=== PATIENT | female | born 1995 | race Caucasian/White ===

== ENCOUNTER 2016-05-23 18:06 | Outpatient (CLI) | payer OTHER ==
[~2016-05-23 18:06] MED LIST: Augmentin PO; CYMBALTA20 MG PO; DEPAKOTE500 MG PO; GEODON80 MG PO; NO HOME MEDS; PERCOCET 5/31 TABLET PO; Roxicet,Percocet 5/3 PO; SEASONIQUE 01 TABLET PO; VYVANSE70 MG PO
== END 2016-05-23 19:36 | disposition home or self-care (01) ==
LOC: LDRP-OP 18:06 → 2WEST 18:07 → LDRP-OP 06-09 14:35
DX: O48.0 Post-term pregnancy (principal); Z3A.41 41 weeks gestation of pregnancy
CPT/HCPCS: G0378

== ENCOUNTER 2016-05-24 07:58 | Inpatient (IN) | payer OTHER ==
[2016-05-23 19:30] VITALS: BP 109/55
[~2016-05-24] VITALS: Ht 154.9 cm; Wt 80.3 kg
[2016-05-24] VITALS (24 sets, daily range): BP systolic 84–146; BP diastolic 50–80
[2016-05-24 09:01] LABS: HEMATOCRIT 35.7 % (36.0-46.0); MCH 29.7 PG (29.0-34.0); MCHC 33.3 G/DL (30.0-36.0); MEAN PLAT.VOLUME 11.2 uM^3 (9.5-12.4); PLATELET COUNT 281 K/uL (156-360); RBC DIS.WIDTH-CV 13.6 % (11.8-14.6); RBC DIS.WIDTH-SD 44.2 % (39-53); RED BLOOD COUNT 4.01 M/uL (3.80-5.20); WHITE BLOOD COUNT 11.7 K/uL (4.1-10.2)
[2016-05-24 09:07] LABS: EOSINOPHIL (%) 1.4 % (0-5); EOSINOPHIL COUNT 0.2 K/uL (0-0.3); IMMATURE GRANULOCYTE (%) 0.4 % (0.0-0.7); IMMATURE GRANULOCYTE COUNT 0.1 K/uL; LYMPHOCYTE COUNT 2.5 K/uL (1.0-2.8); MONOCYTE (%) 5.6 % (3-12); MONOCYTE COUNT 0.7 K/uL (0-0.8); NEUTROPHIL (%) 71.1 % (45-76); NEUTROPHIL COUNT 8.3 K/uL (1.8-6.4)
[2016-05-25] VITALS (13 sets, daily range): BP systolic 105–135; BP diastolic 54–105
[2016-05-26 07:57] VITALS: BP 105/55
== END 2016-05-26 15:40 | disposition home or self-care (01) | DRG 775 ==
LOC: LDRP-OP 07:58 → 2WEST 07:59 → LDRP-OP 19:53 → 2WEST 05-25 02:22 → LDRP-OP 06-09 19:51
PROVIDERS: Nurse Practitioner
PROC: 3E033VJ Introduction of Other Hormone into Peripheral Vein, Percutaneous Approach (ICD-10-PCS; principal; 2016-05-24)
PROC: 3E0S3CZ (ICD-10-PCS; 2016-05-24)
PROC: 00HU33Z Insertion of Infusion Device into Spinal Canal, Percutaneous Approach (ICD-10-PCS; 2016-05-24)
PROC: 0WQNXZZ Repair Female Perineum, External Approach (ICD-10-PCS; 2016-05-25)
PROC: 10E0XZZ Delivery of Products of Conception, External Approach (ICD-10-PCS; 2016-05-25)
DX: O48.0 Post-term pregnancy (principal); O99.344 Other mental disorders complicating childbirth; O26.53 Maternal hypotension syndrome, third trimester; Z3A.41 41 weeks gestation of pregnancy; O99.824 Streptococcus B carrier state complicating childbirth; O70.0 First degree perineal laceration during delivery; O69.81X0 Labor and delivery complicated by cord around neck, without compression, not applicable or unspecified; F43.12 Post-traumatic stress disorder, chronic; O26.03 Excessive weight gain in pregnancy, third trimester; O76 Abnormality in fetal heart rate and rhythm complicating labor and delivery; O99.334 Smoking (tobacco) complicating childbirth; F17.210 Nicotine dependence, cigarettes, uncomplicated; Z37.0 Single live birth
CPT/HCPCS: 85025; 87081; C1755; G0378; J0595; J1050; J2540; J3010; J7120